=== PATIENT | female | born 2000 | race Caucasian/White ===

== ENCOUNTER 2020-04-06 13:16 | Observation (INO) ==
[2020-04-06] MEDS ORDERED: DEXTROSE 50% 25 GM/50 ML VIAL IV PRN (13:50)
[2020-04-06] MEDS ORDERED: GLUCAGON 1 MG VIAL IM PRN (13:50)
[2020-04-06] MEDS: INSULIN REGULAR 100 UNIT/ML SUBCUT SCH ×2 (16:37→20:08)
[2020-04-06] MEDS ORDERED: CALCIUM CARBONATE CHEW 500 MG TABLET PO PRN (22:59)
[2020-04-07] MEDS: INSULIN REGULAR 100 UNIT/ML SUBCUT SCH ×3 (07:35→20:29)
[2020-04-07] MEDS ORDERED: FLUCONAZOLE 200 MG TABLET PO ONE (09:51)
[2020-04-07] MEDS ORDERED: INSULIN REGULAR 100 UNIT/ML SUBCUT ONE (09:55)
[2020-04-07] MEDS: INSULIN NPH 100 UNIT/ML SUBCUT SCH (10:15)
[2020-04-07 15:51] LABS: Total Protein 24 Hr Ur Result 336 MG/24HR (0-149.1); Total Volume,Urine 2400 ML (400-2000)
[2020-04-07] MEDS ORDERED: INSULIN REGULAR 100 UNIT/ML SUBCUT SCH (16:30)
[2020-04-07] MEDS ORDERED: INSULIN NPH 100 UNIT/ML SUBCUT SCH (16:30)
[2020-04-07 16:36] LABS: Creatinine Clearance Urine 186.48 ML/MIN (70-115)
[2020-04-07] MEDS: METRONIDAZOLE 0.75% VAG CREAM 70 GM TUBE VAG SCH (20:12)
[2020-04-08] MEDS: INSULIN REGULAR 100 UNIT/ML SUBCUT SCH (07:33)
[2020-04-08 08:05] VITALS: BP 114/52
[2020-04-08] MEDS: INSULIN NPH 100 UNIT/ML SUBCUT SCH (09:23)
[2020-04-08] MEDS: METRONIDAZOLE 0.75% VAG CREAM 70 GM TUBE VAG SCH (09:24)
== END 2020-04-08 12:30 | disposition home or self-care (01) ==
LOC: N.OBOUT 13:16 → N.OB 13:16 → EDSTATUS 04-07 14:29 → N.OB 04-08 04:58
PROVIDERS: ADMIT Obstetrics & Gynecology; ATTEND Obstetrics & Gynecology

== ENCOUNTER 2020-05-26 00:32 | Inpatient (IN) ==
[2020-05-26] MEDS ORDERED: LACTATED RINGERS 500 ML IV PRN (00:49)
[2020-05-26] MEDS ORDERED: ONDANSETRON 4 MG/2 ML VIAL IV PRN ×2 (00:49→17:21)
[2020-05-26] MEDS ORDERED: LACTATED RINGERS 1,000 ML IV ONE (00:49)
[2020-05-26] MEDS ORDERED: LACTATED RINGERS 1,000 ML IV SCH (01:00)
[2020-05-26 02:01] LABS: Basophils # 0.1 10*3/uL (0.0-0.2); Basophils % 0.5 % (0.0-0.8); Eosinophils # 0.2 10*3/uL (0.0-0.87); Eosinophils % 1.4 % (0.00-10.9); Hematocrit 33.5 VOL% (35.7-47.0); Hemoglobin 13.7 GM/DL (12.0-16.0); Immature Granulocytes % 0.6 %; Immature Granulocytes Absolute 0.07 #; Lymphocytes # 3.1 10*3/uL (1.4-4.0); Lymphocytes % 24.3 % (21.3-54.2); Mean Corpuscular HGB Conc 40.9 GM/DL (32-36); Mean Corpuscular Volume 86.3 FL (87-102); Mean Platelet Volume 11.5 FL (9.6-12.0); Monocytes % 9.4 % (1.7-12.7); Neutrophils % 63.8 % (38.7-73.9); Platelet Count 484 T/CUMM (130-400); Red Blood Count 3.88 MC/CUMM (3.8-5.5); Red Cell Distribution Width 13.6 % (9.3-17.3); White Blood Count 12.7 T/CUMM (4-12)
[2020-05-26] MEDS ORDERED: MEPERIDINE 50 MG/1 ML VIAL IV PRN (02:26)
[2020-05-26] MEDS ORDERED: BUTORPHANOL 2 MG/ML VIAL IV PRN (02:26)
[2020-05-26 03:08] LABS: Albumin 2.5 G/DL (3.4-5.0); Bilirubin,Total 0.4 MG/DL (0.2-1.0); Calcium 9.3 MG/DL (8.5-10.1); Osmolality,Calculated 263.5 MOS/KG (273-304); Total Protein 7.1 G/DL (6.4-8.3)
[2020-05-26] MEDS ORDERED: GLUCAGON 1 MG VIAL IM PRN ×3 (08:39→17:24)
[2020-05-26] MEDS ORDERED: DEXTROSE 50% 25 GM/50 ML VIAL IV PRN ×3 (08:39→17:24)
[2020-05-26] MEDS ORDERED: NALOXONE 0.4 MG/ML VIAL IV PRN (09:10)
[2020-05-26] MEDS ORDERED: hydrOXYzine HCL 25 MG/1 ML VIAL IM PRN (09:10)
[2020-05-26] MEDS ORDERED: ePHEDrine 50 MG/ML VIAL IV PRN (09:10)
[2020-05-26] MEDS ORDERED: PROMETHAZINE 25 MG/1 ML VIAL IM ONE (09:10)
[2020-05-26] MEDS ORDERED: diphenhydrAMINE 50 MG/1 ML VIAL IV PRN ×2 (09:10)
[2020-05-26] MEDS ORDERED: FAMOTIDINE 20 MG/2 ML VIAL IV ONE (09:10)
[2020-05-26] MEDS ORDERED: ONDANSETRON 4 MG/2 ML VIAL IV ONE (09:10)
[2020-05-26] MEDS ORDERED: LACTATED RINGERS 250 ML IV PRN (09:10)
[2020-05-26] MEDS: INSULIN REGULAR 100 UNIT/ML SUBCUT SCH ×5 (09:22→21:22)
[2020-05-26] MEDS ORDERED: CITRIC ACID/SODIUM CITRATE 30 ML UDCUP PO ONE (09:25)
[2020-05-26] MEDS ORDERED: fentaNYL 2 MCG/ROPIV 0.2% EPID 100 ML EPIDURAL SCH (09:30)
[2020-05-26] MEDS ORDERED: OXYTOCIN/LR 20 UNIT/1,000 ML BAG IV SCH (10:00)
[2020-05-26 12:30] LABS: Apearance,Urine CLEAR (Clear); Bilirubin,Urine Negative (Negative); Blood, Urine Negative (Negative); Glucose,Urine (UA) >=500 mg/dL (Negative); Ketones,Urine 20 mg/dL (Negative); Mucus,Urine Occasional /LPF (Occasional); Nitrite,Urine Negative (Negative); Protein,Urine Negative; Squamous Epithelial Cell,Urine Occasional /HPF (0-10); Urine Color Yellow (Yellow); Urine Specific Gravity 1.031 (1.001-1.035); Urine Urobilinogen < 2.0 EU/DL (0.2-1.0); WBC,Urine <1 /HPF (0-6)
[2020-05-26] MEDS ORDERED: TRANEXAMIC ACID 1,000 MG/10 ML VIAL ONE (15:47)
[2020-05-26] MEDS ORDERED: miSOPROStoL 200 MCG TABLET ONE (15:47)
[2020-05-26] MEDS ORDERED: METHYLERGONOVINE 0.2 MG/1 ML AMP ONE (15:47)
[2020-05-26] MEDS ORDERED: CARBOPROST TROMETHAMINE 250 MCG/ML AMP IM ONE (15:48)
[2020-05-26] MEDS ORDERED: LIDOCAINE 1% 50 ML VIAL ONE (15:48)
[2020-05-26] MEDS ORDERED: SODIUM CHLORIDE 0.9% 0 ML IV ONE (15:48)
[2020-05-26] MEDS ORDERED: DEXTROSE 5% LACTATED RINGERS 1,000 ML IV SCH (17:00)
[2020-05-26 17:17] LABS: Cord Arterial Blood HCO3 21.6 MMOL/L
[2020-05-26 17:18] LABS: Cord Venous Blood HCO3 22.6 MMOL/L; Cord Venous Blood PCO2 43.2 MMHG
[2020-05-26] MEDS ORDERED: HYDROCORTISONE 2.5% RECTAL CREAM 30 GM TUBE TOP PRN (17:21)
[2020-05-26] MEDS ORDERED: RHO(D) IMMUNE GLOBULIN 300 MCG SYRINGE IM ONE (17:21)
[2020-05-26] MEDS ORDERED: ACETAMINOPHEN 325 MG TABLET PO PRN (17:21)
[2020-05-26] MEDS ORDERED: LANOLIN 50% CREAM 0.3 OZ TUBE TOP PRN (17:21)
[2020-05-26] MEDS ORDERED: oxyCODONE/ACETAMINOPHEN 5-325 MG TABLET PO PRN (17:21)
[2020-05-26] MEDS ORDERED: OXYTOCIN/LR 20 UNIT/1,000 ML BAG IV ONE (17:21)
[2020-05-26] MEDS ORDERED: WITCH HAZEL PADS 100/JAR TOP PRN (17:21)
[2020-05-26] MEDS ORDERED: MEASLES/MUMPS/RUBELLA VACCINE 0.5 ML VIAL SUBCUT ONE (17:21)
[2020-05-26] MEDS ORDERED: DIPH/TET/ACEL PERT BOOSTER VACCINE 0.5 ML VIAL IM ONE (17:21)
[2020-05-26] MEDS ORDERED: BISACODYL 10 MG SUPP RECTAL PRN (17:21)
[2020-05-26] MEDS: BENZOCAINE 20%/MENTHOL 0.5% SPRAY 56 GM CAN TOP PRN (21:45)
[2020-05-26] MEDS: IBUPROFEN 800 MG TABLET PO PRN (21:45)
[2020-05-26] MEDS: oxyCODONE/ACETAMINOPHEN 5-325 MG TABLET PO PRN (21:52)
[2020-05-27] MEDS: oxyCODONE/ACETAMINOPHEN 5-325 MG TABLET PO PRN ×4 (03:19→21:00)
[2020-05-27] MEDS: IBUPROFEN 800 MG TABLET PO PRN ×4 (03:19→21:00)
[2020-05-27 05:28] LABS: Basophils % 0.2 % (0.0-0.8); Eosinophils # 0.1 10*3/uL (0.0-0.87); Eosinophils % 0.6 % (0.00-10.9); Immature Granulocytes % 0.6 %; Immature Granulocytes Absolute 0.11 #; Lymphocytes # 2.6 10*3/uL (1.4-4.0); Lymphocytes % 13.5 % (21.3-54.2); Mean Corpuscular HGB Conc 38.5 GM/DL (32-36); Mean Corpuscular Volume 86.1 FL (87-102); Mean Platelet Volume 11.3 FL (9.6-12.0); Monocytes % 7.4 % (1.7-12.7); Neutrophils % 77.7 % (38.7-73.9); Platelet Count 402 T/CUMM (130-400); Red Blood Count 3.02 MC/CUMM (3.8-5.5); Red Cell Distribution Width 13.6 % (9.3-17.3); White Blood Count 18.9 T/CUMM (4-12)
[2020-05-27 06:03] LABS: Platelet Estimate Normal
[2020-05-27 06:04] LABS: Anisocytosis Slight
[2020-05-27] MEDS: INSULIN REGULAR 100 UNIT/ML SUBCUT SCH ×4 (07:47→20:59)
[2020-05-27] MEDS: DOCUSATE SODIUM 100 MG CAPSULE PO SCH ×2 (08:55→21:00)
[2020-05-27] MEDS ORDERED: INSULIN NPH 100 UNIT/ML SUBCUT SCH (16:30)
[2020-05-27] MEDS ORDERED: INSULIN REGULAR 100 UNIT/ML SUBCUT SCH (16:30)
[2020-05-27] MEDS ORDERED: SIMETHICONE CHEW 80 MG TABLET PO PRN (16:56)
[2020-05-27] MEDS ORDERED: MAGNESIUM HYDROXIDE SUSP 30 ML UDCUP PO PRN (16:56)
[2020-05-28] MEDS: oxyCODONE/ACETAMINOPHEN 5-325 MG TABLET PO PRN ×3 (03:32→13:48)
[2020-05-28] MEDS: IBUPROFEN 800 MG TABLET PO PRN ×3 (03:32→13:47)
[2020-05-28] MEDS ORDERED: INSULIN NPH 100 UNIT/ML SUBCUT SCH (07:30)
[2020-05-28] MEDS ORDERED: INSULIN REGULAR 100 UNIT/ML SUBCUT SCH (07:30)
[2020-05-28] MEDS: DOCUSATE SODIUM 100 MG CAPSULE PO SCH (08:33)
[2020-05-28] MEDS: INSULIN REGULAR 100 UNIT/ML SUBCUT SCH ×2 (08:35→13:50)
[2020-05-28 09:30] VITALS: BP 115/62
[2020-05-28] MEDS: BENZOCAINE 20%/MENTHOL 0.5% SPRAY 56 GM CAN TOP PRN (13:47)
== END 2020-05-28 16:30 | disposition home or self-care (01) | DRG 560 ==
LOC: N.LDOUT 00:32 → N.LD 00:40 → N.OB 21:40
PROVIDERS: ADMIT Obstetrics & Gynecology; ATTEND Obstetrics & Gynecology